=== PATIENT | female | born 1975 | race Caucasian/White ===

== ENCOUNTER → 2018-06-13 | Outpatient (CLI) | payer OTHER ==
--- NOTE | 2018-06-13 17:08 | REP ---
RIGHT KNEE SERIES: Five views of the right knee are performed. FINDINGS: There is no evidence of an acute fracture, dislocation or intrinsic bone disease. IMPRESSION: No fracture or dislocation. Electronically Signed by Jeff Bell MD 06/13/2018 11:50 P
== END ==
LOC: M LRY 15:46
PROVIDERS: ATTEND Physician Assistant
DX: M25.561 Pain in right knee (principal)

== ENCOUNTER → 2019-07-06 | Outpatient (REF) | payer OTHER | LOC: M SFHCLERA 17:22 | PROVIDERS: ATTEND Physician Assistant Medical | DX: Z11.59 Encounter for screening for other viral diseases (principal); Z20.89 Contact with and (suspected) exposure to other communicable diseases; J06.9 Acute upper respiratory infection, unspecified ==

== ENCOUNTER → 2019-10-25 | Outpatient (CLI) | payer BC ==
[~2019-10-25] MED LIST: FLUO10CA16 PO; LEVO88TA3 PO
[2019-10-25 09:15] LABS: BASO % 0.7 % (0.0-1.0); EOS # 0.1 10^3/uL (0.0-0.5); EOS % 1.7 % (0.0-3.0); HEMATOCRIT 37.1 % (36.0-47.0); LYMPH # 1.5 10^3/uL (1.5-5.0); LYMPH % 26.5 % (24.0-44.0); MEAN CORPUSCULAR HEMOGLOBIN 29.9 pg (27.0-33.0); MEAN CORPUSCULAR HGB CONC 32.3 g/dl (32.0-36.5); MEAN CORPUSCULAR VOLUME 92.5 fl (80.0-96.0); MONO # 0.3 10^3/uL (0.0-0.8); MONO % 5.7 % (0.0-5.0); NEUTROPHILS # 3.8 10^3/uL (1.5-8.5); NEUTROPHILS % 65.1 % (36.0-66.0); PLATELET COUNT, AUTOMATED 278 10^3/uL (150-450); RED BLOOD COUNT 4.01 10^6/uL (4.00-5.40); WHITE BLOOD COUNT 5.8 10^3/uL (4.0-10.0)
[2019-10-25 09:45] LABS: BLOOD UREA NITROGEN 10 MG/DL (7-18); CARBON DIOXIDE LEVEL 27 MEQ/L (21-32); CHLORIDE LEVEL 105 MEQ/L (98-107); CREATININE FOR GFR 0.94 MG/DL (0.55-1.30); GLOMERULAR FILTRATION RATE > 60.0 (>58); GLUCOSE, FASTING 89 MG/DL (70-100); POTASSIUM SERUM 4.5 MEQ/L (3.5-5.1); SODIUM LEVEL 141 MEQ/L (136-145)
--- NOTE | 2019-10-25 17:04 | ECGEPIP ---
[facility] Test Date: 2019-10-25 Pat Name: PAN ABAD Department: Room: - Gender: Female [employer] Operator: SKYLAR : 1975 Requested By: Tony Hdz Order Number: [id number] Reading MD: Robert Landrum Measurements Intervals [place] Rate: 45 P: 56 [place]: 154 QRS: 59 QRSD: 93 T: 39 QT: 446 QTc: 386 Interpretive Statements SINUS BRADYCARDIA Otherwise within normal limits. No prior ECG available for comparison at the time of interpretation. Electronically Signed on 10-25-2019 17:04:05 EDT by Robert Landrum
== END ==
LOC: M LAB 08:34
PROVIDERS: ATTEND Podiatrist
DX: M20.41 Other hammer toe(s) (acquired), right foot (principal); M79.671 Pain in right foot

== ENCOUNTER → 2019-10-28 | Outpatient (CLI) | payer BC | LOC: M LABSMTC 12:21 | PROVIDERS: ATTEND Anesthesiology | DX: Z01.818 Encounter for other preprocedural examination (principal); Z11.59 Encounter for screening for other viral diseases; Z20.828 Contact with and (suspected) exposure to other viral communicable diseases | CPT/HCPCS: C9803; U0002 ==

== ENCOUNTER → 2020-04-08 | Outpatient (CLI) | payer BC ==
[~2020-04-08] MED LIST changes: +GASTROGRAFIN SOLUTION 30ML (Q9963) As Ordered ONE; +ISOVUE-370 76% 100ML VIAL As Ordered ONE
--- NOTE | 2020-04-08 12:54 | REP ---
INDICATION: ABD PAIN, DIARRHEA. COMPARISON: None. TECHNIQUE: Helical scanning is acquired and 3 mm axial images re-formatted. Coronal and sagittal MPR images are generated. The CT contrast enhancement dose is 100 mL of intravenous Isovue 370. FINDINGS: Digital preliminary checker cashier radiograph shows clips in the gallbladder fossa and umbilical jewelry. The bowel gas pattern is normal. The lung bases are clear on axial CT images. There is mild diffuse fatty infiltration of the liver. No focal liver lesion is appreciated. There are clips in the gallbladder fossa. There are 2 or 3 granulomatous calcifications in the spleen. The spleen is otherwise unremarkable. The patient is status post gastric sleeve surgery. Normal adrenal glands are observed. The kidneys enhance symmetrically and are morphologically intact. For no retroperitoneal mass or adenopathy is observed. Small and large bowel loops are unremarkable in the abdomen and pelvis. The patient is status post prior appendectomy hysterectomy. No ovarian mass or abnormal cyst is seen. No abdominal wall defect0 is observed. Bone window settings show no bony destructive lesion. IMPRESSION: Mild diffuse fatty infiltration of the liver. Post cholecystectomy, gastric sleeve, hysterectomy, and appendectomy. No acute abdominal or pelvic abnormality. <Electronically signed by Tim Kincaid > 04/08/20 [id number]
== END ==
LOC: M RAD 09:43
PROVIDERS: ATTEND Nurse Practitioner
DX: K92.1 Melena (principal); R19.4 Change in bowel habit; R10.9 Unspecified abdominal pain; K76.0 Fatty (change of) liver, not elsewhere classified; Z98.84 Bariatric surgery status
CPT/HCPCS: 74177; Q9963; Q9967

== ENCOUNTER → 2021-10-06 | Outpatient (CLI) | payer BC ==
[~2021-10-06] MED LIST changes: -FLUO10CA16 PO; +FLUO10CA18 PO; -GASTROGRAFIN SOLUTION 30ML (Q9963) As Ordered ONE; -ISOVUE-370 76% 100ML VIAL As Ordered ONE
== END ==
LOC: M WHC 07:29
PROVIDERS: ATTEND Physician Assistant
DX: R19.02 Left upper quadrant abdominal swelling, mass and lump (principal)

== ENCOUNTER → 2022-05-16 | Outpatient (CLI) | payer BC, OTHER ==
[2022-05-16 14:40] LABS: URIC ACID 4.8 MG/DL (3.1-7.8)
[2022-05-16 14:44] LABS: C REACTIVE PROTEIN QUANTITATIV 0.4 MG/DL (<1.0)
[2022-05-16 14:45] LABS: RHEUMATOID FACTOR QUANT 6.6 IU/ML (<14)
[2022-05-17 14:08] LABS: ANTINUCLEAR ANTIBODIES DIRECT Negative (Negative)
== END ==
LOC: M PLALAB 11:41
PROVIDERS: ATTEND Orthopaedic Surgery
DX: M25.542 Pain in joints of left hand (principal)

== ENCOUNTER 2022-12-07 08:24 | Day surgery (SDC) | payer BC, OTHER ==
[~2022-12-07] VITALS: Ht 154.9 cm; Wt 87.7 kg
[~2022-12-07 08:24] MED LIST changes: +NS 1,000 ML IV ONE; +OMEP-173 PO
[2022-12-07] MEDS ORDERED: propofoL 200 MG/20 ML VIAL As Ordered ONE ×2 (08:27→08:29)
[2022-12-07] MEDS ORDERED: LIDOCAINE 2% 100MG/5ML SDV (FOR ANES.) As Ordered ONE (08:28)
[2022-12-07] MEDS ORDERED: fentaNYL 100 MCG/2 ML INJECTION As Ordered ONE (09:43)
[2022-12-07 11:06] VITALS: BP 123/74; TEMP 97.2; O2SAT 98
== END 2022-12-07 11:00 | disposition home or self-care (01) ==
LOC: M OPP 08:24
PROVIDERS: ATTEND Surgery
DX: D12.5 Benign neoplasm of sigmoid colon (principal); K64.1 Second degree hemorrhoids; R19.4 Change in bowel habit; K30 Functional dyspepsia; K44.9 Diaphragmatic hernia without obstruction or gangrene; K22.89 Other specified disease of esophagus; K29.70 Gastritis, unspecified, without bleeding; K31.89 Other diseases of stomach and duodenum; Z87.891 Personal history of nicotine dependence; Z79.52 Long term (current) use of systemic steroids; Z79.890 Hormone replacement therapy; Z79.899 Other long term (current) drug therapy
CPT/HCPCS: 43239; 45385; 88305; J3010

== ENCOUNTER → 2023-04-14 | Outpatient (CLI) | payer BC, OTHER ==
[~2023-04-14] MED LIST changes: +E-Z-GAS II EFFERVESCENT PACKET (SODIUM BICARB./CITRIC ACID/SIMETHICONE) As Ordered ONE; +E-Z-HD 98% w/w 340GM SUSP BTL As Ordered ONE; +E-Z-PAQUE 96% w/w SUSP 176GM BTL As Ordered ONE; -NS 1,000 ML IV ONE
== END ==
LOC: M RAD 09:28
PROVIDERS: ATTEND Surgery
DX: K21.9 Gastro-esophageal reflux disease without esophagitis (principal); Z98.84 Bariatric surgery status; R63.5 Abnormal weight gain; K44.9 Diaphragmatic hernia without obstruction or gangrene

== ENCOUNTER → 2023-05-30 | Outpatient (CLI) | payer BC, OTHER ==
[~2023-05-30] MED LIST changes: -E-Z-GAS II EFFERVESCENT PACKET (SODIUM BICARB./CITRIC ACID/SIMETHICONE) As Ordered ONE; -E-Z-HD 98% w/w 340GM SUSP BTL As Ordered ONE; -E-Z-PAQUE 96% w/w SUSP 176GM BTL As Ordered ONE
[2023-05-30 07:26] LABS: BASO # 0.1 10^3/uL (0.0-0.2); BASO % 1.1 % (0.0-1.0); EOS # 0.2 10^3/uL (0.0-0.5); EOS % 2.7 % (0.0-3.0); HEMATOCRIT 34.1 % (36.0-47.0); HEMOGLOBIN 10.8 g/dl (12.0-15.5); LYMPH # 1.8 10^3/uL (1.5-5.0); LYMPH % 31.7 % (24.0-44.0); MEAN CORPUSCULAR HEMOGLOBIN 27.1 pg (27.0-33.0); MEAN CORPUSCULAR HGB CONC 31.7 g/dl (32.0-36.5); MEAN CORPUSCULAR VOLUME 85.5 fl (80.0-96.0); MONO # 0.3 10^3/uL (0.0-0.8); NEUTROPHILS # 3.3 10^3/uL (1.5-8.5); NEUTROPHILS % 58.1 % (36.0-66.0); PLATELET COUNT, AUTOMATED 306 10^3/uL (150-450); RED BLOOD COUNT 3.99 10^6/uL (4.00-5.40); WHITE BLOOD COUNT 5.6 10^3/uL (4.0-10.0)
[2023-05-30 07:49] LABS: IRON (FE) 41 UG/DL (50-170); PERCENT SATURATION 10.9 % (13.2-45.0); TOTAL IRON BINDING CAPACITY 377 UG/DL (250-425)
[2023-05-30 07:50] LABS: ALBUMIN 3.6 G/DL (3.2-5.2); ALKALINE PHOSPHATASE 79 U/L (46-116); ALT/SGPT 23 U/L (7.0-40); AST/SGOT 23 U/L (<34); BILIRUBIN,TOTAL 0.6 MG/DL (0.3-1.2); BLOOD UREA NITROGEN 19 MG/DL (9-23); CALCIUM LEVEL 9.1 MG/DL (8.5-10.1); CARBON DIOXIDE LEVEL 27 MMOL/L (20-31); CHLORIDE LEVEL 108 MMOL/L (98-107); CHOLESTEROL LEVEL 160 MG/DL (<200); CREATININE FOR GFR 0.93 MG/DL (0.55-1.30); GLOMERULAR FILTRATION RATE > 60.0 (>58); GLUCOSE, FASTING 98 MG/DL (60-100); HDL CHOLESTEROL 59.1 MG/DL (>40); LDL CHOLESTEROL 89.3 MG/DL (<100); NON-HDL-C 100.9 MG/DL; POTASSIUM SERUM 4.5 MMOL/L (3.5-5.1); SODIUM LEVEL 139 MMOL/L (136-145); TRIGLYCERIDES LEVEL 58 MG/DL (<150)
[2023-05-30 07:51] LABS: FERRITIN 6.8 NG/ML (7.3-270.7); THYROID STIMULATING HORMONE 5.066 uIU/ML (0.55-4.78); TOTAL 25(OH) VITAMIN D 23.9 NG/ML (20.0-100.0)
[2023-05-30 07:52] LABS: FOLATE 16.12 NG/ML (>5.4); VITAMIN B12 LEVEL 285 PG/ML (211-911)
[2023-05-30 08:04] LABS: HEMOGLOBIN A1c 5.8 % (4.0-6.0)
== END ==
LOC: M LAB 06:20
PROVIDERS: ATTEND Surgery
DX: E66.01 Morbid (severe) obesity due to excess calories (principal)

== ENCOUNTER → 2024-12-12 | Outpatient (CLI) | payer BC ==
[~2024-12-12] MED LIST changes: +FLUO-290 PO; -FLUO10CA18 PO
== END ==
LOC: M WHC 09:35
PROVIDERS: ATTEND Plastic Surgery
DX: M79.662 Pain in left lower leg (principal); I97.89 Other postprocedural complications and disorders of the circulatory system, not elsewhere classified